=== PATIENT | male | born 1990 | race Caucasian/White ===

== ENCOUNTER 2019-11-20 06:57 | Emergency (ER) | payer OTHER ==
[~2019-11-20] VITALS: Ht 170.2 cm; Wt 60.1 kg
[~2019-11-20 06:57] MED LIST: COLACE100 MG PO; KEFLEX500 MG PO; LAC PO; NORCO1 TA2 PO; POTASSIUM CHLO20 ME1 PO; PROAIR HFA0.09 MG/A1 INH; ZITHROMAX250 MG PO
[2019-11-20 07:04] VITALS: BP 134/77; Ht 170.2 cm; Wt 60.1 kg
== END 2019-11-20 09:10 | disposition home or self-care (01) ==
LOC: ED 06:57
DX: H10.89 Other conjunctivitis (principal)
CPT/HCPCS: J1885